=== PATIENT | female | born 1955 | race Caucasian/White ===

== ENCOUNTER 2018-05-15 12:26 | Emergency (ER) | payer BC ==
[2018-05-15 13:22] VITALS: BP 136/57
--- NOTE | 2018-05-15 13:28 | UC ---
UC General HPI - HPI Summary HPI Summary: per triage, THIS MORNING PT NOTICED URINARY FREQUENCY AND DYSURIA. DENIES TAKING AZO. no fevr, abdominal or flank pain. hx same, c/w a uti. - History of Current Complaint Chief Complaint: UCGU Stated Complaint: URINARY COMPLAINT Time Seen by Provider: 05/15/18 13:17 Hx Obtained From: Patient Onset/Duration: Gradual Onset Timing: Constant Pain Intensity: 0 Associated Signs & Symptoms: Negative: Abdominal Pain - Allergy/Home Medications Allergies/Adverse Reactions: Allergies Allergy/AdvReac Type Severity Reaction Status Date / Time Sulfa (Sulfonamide Allergy Severe Nausea And Verified 05/15/18 13:13 Antibiotics) Vomiting amoxicillin Allergy See Comment Verified 05/15/18 13:13 Penicillins Allergy See Comment Verified 05/15/18 13:13 Home Medications: Home Medications Aspirin EC TAB* [Ecotrin EC Low Dose 81 MG*] 1 tab DAILY 05/15/18 [History Confirmed 05/15/18] Atorvastatin* [Lipitor 20 MG*] 1 tab QAM 05/15/18 [History Confirmed 05/15/18] metFORMIN* [Glucophage 500 MG TAB *] 1 tab QPM 05/15/18 [History Confirmed 05/15] PMH/Surg Hx/FS Hx/Imm Hx - Additional Past Medical History Additional PMH: uti x1, rheumatic fever Endocrine History: Dyslipidemia - Surgical History Surgical History: Yes Surgery Procedure, Year, and Place: HYSTERECTOMY. [facility] - Social History Alcohol Use: Rare Substance Use Type: None Smoking Status (MU): Never Smoked Tobacco Review of Systems All Other Systems Reviewed And Are Negative: Yes Constitutional: Positive: Negative Skin: Positive: Negative Eyes: Positive: Negative ENT: Positive: Negative Respiratory: Positive: Negative Cardiovascular: Positive: Negative Gastrointestinal: Negative: Abdominal Pain Genitourinary: Positive: Dysuria, Frequency, Urgency Motor: Positive: Negative Neurovascular: Positive: Negative Musculoskeletal: Positive: Negative Neurological: Positive: Negative Psychological: Positive: Negative Physical Exam Triage Information Reviewed: Yes Appearance: Well-Appearing Vital Signs: Initial Vital Signs Temp 98.1 F 05/15/18 13:16 Pulse 77 05/15/18 13:16 Resp 16 05/15/18 13:16 BP 136/57 05/15/18 13:16 Pulse Ox 98 05/15/18 13:16 Vital Signs Reviewed: Yes Eyes: Positive: Conjunctiva Clear ENT: Positive: Normal ENT inspection Neck: Positive: Supple Respiratory: Positive: Lungs clear Cardiovascular: Positive: RRR Abdomen Description: Positive: Nontender, No Organomegaly, Soft. Negative: CVA Tenderness (R), CVA Tenderness (L), Distended, Guarding Bowel Sounds: Positive: Present Musculoskeletal: Positive: ROM Intact Neurological: Positive: Alert Psychological: Positive: Age Appropriate Behavior Skin Exam: Normal Diagnostics - Laboratory Diagnostic Studies Completed/Ordered: u/a= 2+ blood, 2+ leuks with culture pending. Course/Dx - Diagnoses Provider Diagnosis: UTI (urinary tract infection) Discharge - Sign-Out/Discharge Documenting (check all that apply): Patient Departure All imaging exams completed and their final reports reviewed: No Studies - Discharge Plan Condition: Stable Disposition: HOME Prescriptions: Cephalexin CAP* [Keflex CAP*] 500 mg PO BID 7 Days #14 cap Patient Education Materials: Urinary Tract Infection in Women (DC) Referrals: Priscilla Jackson MD [Primary Care Provider] - 7 Days - Billing Disposition and Condition Condition: STABLE Disposition: Home
== END 2018-05-15 13:39 | disposition home or self-care (01) ==
LOC: UCCORT 12:26
DX: N39.0 Urinary tract infection, site not specified (principal); E78.5 Hyperlipidemia, unspecified; Z88.2 Allergy status to sulfonamides; Z88.0 Allergy status to penicillin; Z79.82 Long term (current) use of aspirin; Z79.899 Other long term (current) drug therapy
CPT/HCPCS: 81003; 87077; 87086; 87186; 99202; G0463

== ENCOUNTER 2019-04-21 09:35 | Emergency (ER) | payer BC ==
--- OUTSIDE RECORDS SUMMARY | 2019-04-21 10:47 | XMS REPORT | Continuity of Care Document ---
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 [phone] Dermatology Problems Active Problems Provider Date Impaired fasting glycaemia Priscilla Jackson MD Onset: 01/11/2013 Family history of endocrine disorders Priscilla Jackson MD Onset: 07/11/2012 Obesity Priscilla Jackson MD Onset: 07/19/2011 Migraine without aura, not refractory Priscilla Jackson MD Onset: 12/28/2009 Vitamin D deficiency Priscilla Jackson MD Onset: 09/22/2009 Benign neoplasm of colon Priscilla Jackson MD Onset: 09/17/2007 History of malignant melanoma of the skin Priscilla Jackson MD Onset: 2006 Gastroesophageal reflux disease Priscilla Jackson MD Onset: 03/14/2006 Elevated blood-pressure reading without Priscilla Jackson MD Onset: 2005 diagnosis of hypertension Mixed hyperlipidemia Priscilla Jackson MD Onset: 03/14/2006 Pure hypercholesterolemia Priscilla Jackson MD Onset: 07/27/2015 Social History Type Date Description Comments Sex Unknown ETOH Use Occasionally consumes alcohol Tobacco Use Start: Unknown Patient has never smoked Recreational Drug Use Denies Drug Use Smoking Status Reviewed: 09/21/18 Patient has never smoked Exercise Type/Frequency Exercises regularly 07/27/15 counselled 150min per week, 10k steps per day [facility] Allergies, Adverse Reactions, Alerts Active Allergies Reaction Severity Comments Date Shellfish-derived Products 07/09/2014 Adhesives 07/09/2014 Sulfa Drugs 07/27/2015 Medications Active Medications SIG Qnty Indications Ordering Provider Date Azo Cranberry Priscilla Jackson, 09/21/2018 250-30mg MD Tablets Metformin HCL ER 1 by mouth daily 90tabs R73.09 Priscilla Jackson, 2016 500mg with first bite MD Tablets ER 24HR of evening meal Co Q10 1 by mouth every 90caps E78.2 Priscilla Jackson, 07/09/2014 200mg Capsules day MD Atorvastatin Calcium take 1 tablet by 90tabs E78.2 Priscilla Jackson, 01/07 20mg mouth every day MD Tablets Multivitamins 1 by mouth every OTC Priscilla Jackson, 01/10/2012 Capsules day MD Aspirin Low Dose 1 by mouth daily E78.2 Priscilla Jackson, 09/22/2009 81mg MD Chewtabs Vitamin D3 1 by mouth every E55.9 Unknown 2000Unit day Capsules Vitamin C 1 by mouth every Unknown 500mg Tablets day Lutein 1 by mouth every Unknown 20mg Capsules day Immunizations CPT Code Status Date Vaccine Reaction Lot # [id number] Given 12/20/2018 Influenza Vac, Quadrivalent, Split, 0.5mL Dosage, Im Use [id number] Given 01/12/2018 Flu Vaccine NOS [id number] Given 08/07/2017 Tdap (Adacel) Ages 7 And Above Only [id number] Q2035 Given 12/27/2016 Afluria Imunization MICHAEL CHOPPER 51039 Given 12/26/2016 Influenza Virus Vaccine,Quadrivalent,Split,Preserv Free, 0.5mL,Im [address] Given 01/20/2016 Influenza Virus MICHAEL CHOPPER Vaccine,Quadrivalent,Split,Preserv Free, 0.5mL,Im 17030 Given 12/18/2013 Influenza Virus Vaccine,Quadrivalent,Split,Preserv Free, 0.5mL,Im 26731 Given 12/20/2012 Afluria Or Fluvirin Flu Vac Intramuscular 86332 Given 01/11/2012 Afluria Or Fluvirin Flu Vac Intramuscular 47336 Given 12/28/2009 Afluria Or Fluvirin Flu Vac Intramuscular 40203 Given 02/26/2009 Afluria Or Fluvirin Flu Vac Intramuscular 42049 Given 03/21/2008 Tdap (Adacel) Ages 7 And Above Only 52017 Given 02/12/2003 Afluria Or Fluvirin Flu Vac Intramuscular [id number] Refused 08/02/2016 Zoster (Zostavax) [id number] Refused 07/27/2015 Influenza Virus Vaccine,Quadrivalent,Split,Preserv Free, 0.5mL,Im Vital Signs Date Vital Result Comment 04/19/2019 10:32am Weight 208.00 lb Heart Rate 76 /min BP Systolic 130 mmHg BP Diastolic 80 mmHg Respiratory Rate 16 /min Height 66.5 inches 5'6.50" BMI (Body Mass Index) 33.1 kg/m2 09/21/2018 2:18pm Weight 218.00 lb Heart Rate 88 /min BP Systolic 132 mmHg BP Diastolic 72 mmHg Respiratory Rate 18 /min Height 66.5 inches 5'6.50" BMI (Body Mass Index) 34.7 kg/m2 Results Test Acquired Date Facility Test Result H/L Range Note Laboratory test finding 04/12/2019 [facility] Insulin 6.6 mIU/L (2.6-37.6) 1 Comprehensive Met 04/12/2019 [facility] Sodium 142 mmol/L 135-146 2 [facility] Potassium 4.1 mmol/L 3.5-5.2 Chloride# 105 mmol/L 97-110 3 Carbon Dioxide 30 mmol/L 24-34 Calcium 9.5 mg/dL 8.5-10.5 4 Glucose 105 mg/dL 70-105 BUN 18 mg/dL 6-26 Creatinine 0.8 mg/dL 0.5-1.4 Total Protein 6.4 g/dL 6.0-8.0 Albumin 4.4 g/dL 3.6-4.9 Globulin 2.0 g/dL 2.0-3.5 A/G Ratio 2.2 Ratio 1.0-2.2 Total Bilirubin 0.7 mg/dL 0.1-1.3 Alkaline Phosphatase 81 U/L 24-140 Alt 18 U/L 3-42 Ast 17 U/L 8-42 Anion Gap 7 mmol/L 5-15 5 Female Egfr 75 >60 6 Male Egfr 93 >60 7 Lipid 04/12/2019 [facility] Cholesterol 155 mg/dL 50-199 Triglycerides 158 mg/dL 30-200 HDL 35 mg/dL 35-85 8 Chol/ HDL Ratio 4.4 ratio 3.7-5.6 VLDL 32 mg/dL High 2-29 LDL (Calc) 89 mg/dL 20-99 9 Laboratory test finding 04/12/2019 [facility] CPK 78 U/L 12-199 Hemoglobin A1c 04/12/2019 [facility] Hemoglobin A1c 6.2 % High 4.1-5.9 Estimated Average Glucose Calc 131 mg/dL 71-140 1 ADULT REFERENCE RANGE Unless otherwise specified, testing performed by [facility] [address] [place] [id number] 2 Updated reference range on new analyzer 3 Updated reference range on new analyzer 4 Updated reference range 07-18-2018 5 Updated Reference Range 6 Concerning GFR Guidelines for Americans: Normal function or mild renal disease, if clinically at risk: >/= 60 mL/min Moderately decreased: 30-59 Severely decreased: 15-29 Renal failure: <15 There is reduced accuracy above 60ml/min/1.73 m squared, but the numeric value may be clinically useful in the near 60 range 7 Concerning GFR Guidelines: Normal function or mild renal disease, if clinically at risk: >/= 60 mL/min Moderately decreased: 30-59 Severely decreased: 15-29 Renal failure: <15 There is reduced accuracy above 60ml/min/1.73 m squared, but the numeric value may be clinically useful in the near 60 range Glomerular Filtration Rate (GFR) is estimated based on the CKD-EPI equation, which assumes a steady state for creatinine as recommended by the National Kidney Disease Education Program in conjunction with the National Institutes of Health and the National Kidney Foundation. Clinical conditions in which it may be necessary to measure GFR by using clearance methods include extremes of age and body size, severe malnutrition or obesity, diseases of skeletal muscle, paraplegia or quadriplegia, vegetarian diet, rapidly changing kidney function, and calculation of the dose of potentially toxic drugs that are excreted by the kidneys. 8 Per NCEP ATP III Guidelines: Results lower than 40 mg/dL are suggestive of increased risk for coronary artery disease. Results > or = to 60 mg/dL are considered a negative risk factor. 9 Per NCEP ATP III Guidelines: Normal Population <130 Patients with medical conditions: CHD/DM Optimal: <100 Borderline high: 130-159 High: 160-189 Very high: >189 Procedures Date Code Description Status 08/15/2018 35447892 Colonoscopy Completed 12/05/2017 [id number] Colonoscopy Completed 07/31/2017 [id number] Mammogram Completed 07/25/2017 [id number] Colonoscopy Completed 01/02/2015 [id number] Bone Mineral Density Test Completed 07/03/2014 [id number] Mammogram Completed Medical Devices Description No Information Available Encounters Description No Information Available Assessments Date Code Description Provider 04/19/2019 E78.2 Mixed hyperlipidemia Priscilla Jackson MD 04/19/2019 R73.09 Other abnormal glucose Priscilla Jackson MD 04/19/2019 K21.9 Gastro-esophageal reflux disease without Priscilla Jackson MD esophagitis 04/19/2019 R03.0 Elevated blood-pressure reading, without Priscilla Jackson MD diagnosis of hypert 04/19/2019 E66.9 Obesity, unspecified Priscilla Jackson MD 04/19/2019 G43.009 Migraine without aura, not intractable, Priscilla Jackson MD without status migra 04/19/2019 E55.9 Vitamin D deficiency, unspecified Priscilla Jackson MD 04/19/2019 K63.5 Polyp of colon Priscilla Jackson MD 04/19/2019 Z12.31 Encounter for screening mammogram for Priscilla Jackson MD malignant neoplasm of breast 04/19/2019 Z68.33 Body mass index (BMI) 33.0-33.9, adult Priscilla Jackson MD 04/12/2019 E78.2 Mixed hyperlipidemia Priscilla Jackson MD 04/12/2019 E78.2 Mixed hyperlipidemia Schedule, Laboratory 04/12/2019 R73.09 Other abnormal glucose Priscilla Jackson MD 04/12/2019 R73.09 Other abnormal glucose Schedule, Laboratory 04/12/2019 E78.2 Mixed hyperlipidemia [facility] 04/12/2019 R73.09 Other abnormal glucose [facility] Plan of Treatment Future Appointment(s):10/23/2019 11:00 am - Priscilla Jackson MD at [facility]2019 - Priscilla Jackson MDE78.2 Mixed hyperlipidemiaNew Labs:Comprehensive Met Panel-[facility], Ordered: 04/19/19Lipid, Ordered: 04/19/19CPK, Ordered: 04/19/19New Xrays:Calcium Score Heart Scan, Ordered: 04/19/19Comments:high cholbaseline ldl was 160s, so statins were given several years agoper assessment of AHA 2018 guidelines in 09/2018 and she is 4.9% which is still low risk but if she stops meds and goes higher become borderline risk and has family history treated ldl shows a 30-50% reduction we discussed, she agrees and will continue current meds. monitor for side effects of muscle aches or crampswe watch for liver effects with labsPlease call if you have any concerns.Aspirin she wants to continue in case of anybenefit for colon cancer prevention For lifestyle, we also recommend: Low fat ( under 30gm per day),low chol diet ( under 300mg per day chol)focus on lean meat, nonfat 1% dairy, increased veg and fruit, whole grains weight lossexercise build to at least 30min per day. Reviewed signs and symptoms of cardiovascular disease. Since she is lower risk, Advised pt to consider doing a CT coronary artery calcium score, program through [facility], CT scan with risks for radiation exposure and chance to find another abnormality that needs a workup, but benefit of identifying calcium load that would suggest coronary artery disease and potential opportunity for early treatment. The test can miss soft plaque. Advised most insurances don't cover the cost; the cost is about $150. She want to dothis test ordered to do as she wantsFollow up:schedule ct calcium score anytime in next several months; next visit after 09/21 [id number] annual gynphysical with nonfasting labs, mammo 5 days arhgzH89.09 Other abnormal glucoseNew Labs:Hemoglobin A1c, Ordered: Comments:impaired fasting glucose glucoses stable and glyco at 6. 2 please work on daily regular exercise andhealthy diet, weight loss Advised pt s/sx of diabetes such as fatigue, thirst and polyuria recommend continue metformin 500mg ER take with first bite of main meal of the day, may help with weight loss , caution gi upset, diarrhea, and renal issues, advised to tell other docs you are taking this and why, to not take if has a dye study.K21.9 Gastro-esophageal reflux disease without esophagitisComments:GERD/esophagitis--Symptoms moderately well controlled on current acid troy therapy, as needed. Reminded pt we need to control the symptoms as those symptoms would be signs of gastric acid eroding on the esophagus, which can lead to complications. Call if has heartburn more than 2 - 3 times per week. Pt should take meds to control any break through symptoms. Please be sure to take your acid troy 30min before a meal.R03.0 Elevated blood-pressure reading, without diagnosis of hypertComments:Prehypertensive. Bp at or over 120/80 either number indicates prehypertension. Advised pt cut offs to initiate medication treatment are > 140/90, either number, new guidelines are out, will let youknow with next visit if we need to change anything Pt should continue to monitor and call if bps are regularly higher. In the meantime, work on healthy eating and avoiding excessive salt, DASH diet, regular exercise, lose weight . Elevated blood pressure. Recommend obtain home readings.Check readings 3 times a week, various times of the day. Protocol: use an arm cuff that fits. Sit for 5 min. Obtain bp when seated with back supported, legs uncrossed and feet flat on floor, arms supported. Ifhigh, repeat after a few minutes. If high, recheck both arms. Normal is under 130/80Prehypertensiveis 130 - 139 /80 - 90We treat for over 140/ 90--new guidelines suggest 130/80E66.9 Obesity, unspecifiedComments:Congrats on healthier lifestyle and exercise leading to a gradual weight reduction! Encouragement given to continue.G43.009 Migraine without aura, not intractable, without status migraComments:Migraines controlled to pt's satisfaction. Advised to continue meds and call for worse migraine frequency.E55.9 Vitamin D deficiency, [id number] Polyp of colonComments:Pt with h/o colon polyps, last colonoscopy 07/2018 Dr Rojas, results this time show only hyperplastic polyps, had mult polyps in 2018 including tubulovillous adenoma with dysplasia. She plans next in 3 yr , 2021 Please call for blood in stool, changes in bowel habits, any concerns. Colonoscopy can still miss polyps.Z12.31 Encounter for screening mammogram for malignant neoplasm of breastNew Xrays:Mammogram Screening, Bilateral Incl CAD When Performe, Ordered: 04/19/19Z68.33 Body mass index (BMI) 33.0-33.9, adultComments:recommend reduced calorie diet, regular exercise and weight loss Functional Status Description No Information Available Mental Status Description No Information Available Referrals Description No Information Available
[2019-04-21 10:54] VITALS: BP 150/68
[2019-04-21 11:17] LABS: Influenza A Molecular Negative (Negative); Influenza B Molecular Negative (Negative)
--- NOTE | 2019-04-21 11:20 | UC ---
Respiratory Complaint HPI - HPI Summary HPI Summary: 63 yo female with cough /runny nose/sore throat and otalgia x 1 day no MORA no f/c No myalgias no cp or sob - History of Current Complaint Chief Complaint: UCGeneralIllness Stated Complaint: SORE THROAT, EAR COMPLAINT Time Seen by Provider: 04/21/19 10:54 Hx Obtained From: Patient Onset/Duration: Sudden Onset, Lasting Hours Timing: Constant Severity Initially: Moderate Severity Currently: Moderate Pain Intensity: 5 Pain Scale Used: 0-10 Numeric Character: Cough: Nonproductive Aggravating Factors: Nothing Alleviating Factors: Nothing Associated Signs And Symptoms: Positive: URI, Nasal Congestion. Negative: Fever , Chills - Allergies/Home Medications Allergies/Adverse Reactions: Allergies Allergy/AdvReac Type Severity Reaction Status Date / Time Sulfa (Sulfonamide Allergy Severe Nausea And Verified 05/15/18 13:13 Antibiotics) Vomiting amoxicillin Allergy See Comment Verified 05/15/18 13:13 Penicillins Allergy See Comment Verified 05/15/18 13:13 shellfish derived Allergy Nausea And Verified 04/21/19 10:54 Vomiting Home Medications: Home Medications Ascorbic Acid TAB* [Vitamin C TAB*] 500 mg PO DAILY 04/21/19 [History Confirmed 04/21/19] Cholecalciferol (Vitamin D3) [Vitamin D-3] 2,000 unit PO DAILY 04/21/19 [ History Confirmed 04/21/19] Dm/PE/Acetaminophen/Doxylamine [Nighttime Severe Cold-Flu Liq] 355 ml PO BID PRN 04/21/19 [History Confirmed 04/21/19] Lutein 20 mg PO DAILY 04/21/19 [History Confirmed 04/21/19] Ubidecarenone [Co Q-10] 200 mg PO DAILY 04/21/19 [History Confirmed 04/21/19] PMH/Surg Hx/FS Hx/Imm Hx Previously Healthy: Yes Endocrine History: Diabetes, Dyslipidemia Cardiovascular History: Hypertension - Surgical History Surgical History: Yes Surgery Procedure, Year, and Place: HYSTERECTOMY. [facility] - Family History Known Family History: Positive: Hypertension - Social History Alcohol Use: Rare Substance Use Type: None Smoking Status (MU): Never Smoked Tobacco Review of Systems All Other Systems Reviewed And Are Negative: Yes Constitutional: Positive: Negative Skin: Positive: Negative Eyes: Positive: Negative ENT: Positive: Sore Throat, Ear Ache, Nasal Discharge, Sinus Congestion, Sinus Pain/Tenderness Respiratory: Positive: Cough Cardiovascular: Positive: Negative Gastrointestinal: Positive: Negative Genitourinary: Positive: Negative Motor: Positive: Negative Neurovascular: Positive: Negative Musculoskeletal: Positive: Negative Neurological: Positive: Negative Psychological: Positive: Negative Physical Exam Triage Information Reviewed: Yes Appearance: Well-Appearing, No Pain Distress, Well-Nourished Vital Signs: Initial Vital Signs Temp 98.5 F 04/21/19 10:48 Pulse 83 04/21/19 10:48 Resp 14 04/21/19 10:48 BP 150/68 04/21/19 10:48 Pulse Ox 99 04/21/19 10:48 Vital Signs Reviewed: Yes Eyes: Positive: Conjunctiva Clear ENT: Positive: Hearing grossly normal, Nasal congestion, Nasal drainage, TM bulging, Sinus tenderness. Negative: TM dull, TM red, Tonsillar swelling, Tonsillar exudate, Trismus, Muffled voice, Hoarse voice, Uvula midline Dental Exam: Normal Neck: Positive: Supple, Nontender, No Lymphadenopathy Respiratory: Positive: Lungs clear, Normal breath sounds, No respiratory distress, No accessory muscle use Cardiovascular: Positive: RRR, No Murmur Abdomen Description: Positive: Nontender, No Organomegaly Bowel Sounds: Positive: Present Musculoskeletal: Positive: ROM Intact, No Edema Neurological: Positive: Alert Psychological Exam: Normal Skin Exam: Normal Diagnostics - Laboratory Lab Results: strep - influenza - Respiratory Course/Dx - Differential Dx/Diagnosis Provider Diagnosis: Viral URI with cough, Bilateral serous otitis media Discharge ED - Sign-Out/Discharge Documenting (check all that apply): Patient Departure All imaging exams completed and their final reports reviewed: No Studies - Discharge Plan Condition: Stable Disposition: HOME Prescriptions: Fluticasone NASAL SPRAY 50MCG* [Flonase NASAL SPRAY 50MCG*] 2 spray BOTH NARES BID #1 btl Patient Education Materials: Upper Respiratory Infection (DC) Referrals: Priscilla Jackson MD [Primary Care Provider] - 3 Days (if not improved ) Additional Instructions: recheck for new or worsening symptoms - Billing Disposition and Condition Condition: STABLE Disposition: Home
== END 2019-04-21 11:51 | disposition home or self-care (01) ==
LOC: UCCORT 09:35
DX: J06.9 Acute upper respiratory infection, unspecified (principal); R05 Cough; H65.93 Unspecified nonsuppurative otitis media, bilateral; I10 Essential (primary) hypertension; E11.9 Type 2 diabetes mellitus without complications; Z88.0 Allergy status to penicillin; Z88.2 Allergy status to sulfonamides; Z91.013 Allergy to seafood
CPT/HCPCS: 87651; 99212; G0463